=== PATIENT | female | born 1995 | race American Indian/Alaskan Native ===

== ENCOUNTER 2018-08-03 20:26 | Emergency (ER) | payer MEDICAID, OTHER ==
--- NOTE | 2018-08-03 20:43 | Event Note ---
ED Screening Note Date of service: 08/03/18 Time: 20:43 ED Screening Note: 23 y/o female with severe back pain. Denies any trauma. This initial assessment/diagnostic orders/clinical plan/treatment(s) is/are subject to change based on patients health status, clinical progression and re-assessment by fellow clinical providers in the ED. Further treatment and workup at subsequent clinical providers discretion. Patient/guardian urged not to elope from the ED as their condition may be serious if not clinically assessed and managed. Initial orders include:
[2018-08-03 21:53] LABS: Bacteria,Urine 1+ /HPF (Negative); Bilirubin,Urine NEG (Negative); Blood,Urine LG (Negative); Color,Urine Yellow (Yellow); Mucus,Urine FEW /HPF; Protein,Urine <15 mg/dL mg/dL (Negative); Urobilinogen,Urine < 2.0 mg/dL (<2.0)
[2018-08-03] MEDS ORDERED: TORADOL IM ONE (22:58)
--- NOTE | 2018-08-03 23:00 | Emergency Department Report ---
ED Back Pain/Injury HPI - General Chief Complaint: Back Pain/Injury Stated Complaint: SEVERE BACK PAIN Time Seen by Provider: 08/03/18 22:42 Source: patient, family Limitations: No Limitations - History of Present Illness Initial Comments: This is 23-year-old female here report that she is having back pain 10/10 3 days. Denies any injury. Reports pain is located to the left side of back and denies any problem with urination. Denies any injury. She says that she feels like she pulled a muscle. Pain is 10/10 achy. Complaint: back pain Onset/Timin -: days(s) Similar Symptoms Previously: Yes Place: home Radiation: none Severity: severe Severity scale (0 -10): 10 Quality: aching Consistency: constant Improves With: none Worsens With: none Context: unknown Associated Symptoms: denies: confusion, weakness, chest pain, numbness, difficulty walking, cough, difficulty urinating, diaphoresis, incontinence, fever/chills, constipation, headaches, abdominal pain, loss of appetite, malaise, nausea/vomiting, rash, seizure, shortness of breath, syncope Treatments Prior to Arrival: acetaminophen - Related Data Previous Rx's Medication Instructions Recorded Last Taken Type Cyclobenzaprine [Flexeril] 10 mg PO TID PRN #12 tablet 08/04/18 Unknown Rx Naproxen [Naprosyn] 500 mg PO Q12H PRN #10 tablet 08/04/18 Unknown Rx Sulfamethoxazole/Trimethoprim 1 each PO BID 7 Days #14 tablet 08/04/18 Unknown Rx [Bactrim DS TAB] Allergies Allergy/AdvReac Type Severity Reaction Status Date / Time No Known Allergies Allergy Unverified 08/13/15 17:35 ED Review of Systems ROS: Stated complaint: SEVERE BACK PAIN Other details as noted in HPI Constitutional: denies: chills, fever ENT: denies: throat pain, congestion Respiratory: denies: cough, shortness of breath, wheezing Cardiovascular: denies: chest pain, palpitations, edema, syncope Gastrointestinal: denies: abdominal pain, nausea, vomiting Genitourinary: denies: dysuria, frequency, hematuria Musculoskeletal: back pain. denies: joint swelling, arthralgia, myalgia Skin: denies: rash Neurological: denies: headache, numbness, paresthesias, confusion, abnormal gait, vertigo ED Past Medical Hx - Past Medical History Previous Medical History?: No Hx Hypertension: No Hx Diabetes: No Hx Deep Vein Thrombosis: No Hx Renal Disease: No Hx Sickle Cell Disease: No Hx Seizures: No Hx Asthma: No - Surgical History Past Surgical History?: No - Family History Family history: hypertension - Social History Smoking Status: Never Smoker Substance Use Type: None - Medications Home Medications: Home Medications Medication Instructions Recorded Confirmed Last Taken Type Cyclobenzaprine [Flexeril] 10 mg PO TID PRN #12 tablet 08/04/18 Unknown Rx Naproxen [Naprosyn] 500 mg PO Q12H PRN #10 tablet 08/04/18 Unknown Rx Sulfamethoxazole/Trimethoprim 1 each PO BID 7 Days #14 tablet 08/04/18 Unknown Rx [Bactrim DS TAB] ED Physical Exam - General Limitations: No Limitations General appearance: alert, in no apparent distress - Head Head exam: Present: atraumatic, normocephalic - Eye Eye exam: Present: normal appearance, PERRL, EOMI - ENT ENT exam: Present: normal exam, normal orophraynx, mucous membranes moist - Neck Neck exam: Present: normal inspection, full ROM. Absent: tenderness, lymphadenopathy - Respiratory Respiratory exam: Present: normal lung sounds bilaterally. Absent: respiratory distress, chest wall tenderness - Cardiovascular Cardiovascular Exam: Present: regular rate, normal rhythm, normal heart sounds - GI/Abdominal GI/Abdominal exam: Present: soft, normal bowel sounds. Absent: distended, tenderness, guarding, rebound, rigid, organomegaly, mass, bruit, pulsatile mass - Extremities Exam Extremities exam: Present: normal inspection, full ROM, normal capillary refill, other (No cce. + 2 pulses in all extremities, no neurovascular compromise). Absent: tenderness, pedal edema, joint swelling, calf tenderness - Back Exam Back exam: Present: normal inspection, full ROM, CVA tenderness (L), other (ambulates without any difficulties). Absent: tenderness, CVA tenderness (R), muscle spasm, paraspinal tenderness, vertebral tenderness, rash noted - Expanded Back Exam Expanded Back exam: Absent: saddle anesthesia Back exam: Negative Straight Leg Raising: Left, Right - Neurological Exam Neurological exam: Present: alert, oriented X3, normal gait - Psychiatric Psychiatric exam: Present: normal affect, normal mood - Skin Skin exam: Present: warm, dry, intact, normal color. Absent: rash ED Course Vital Signs 08/03/18 08/04/18 20:42 02:33 Temperature 98.4 F 98.0 F Pulse Rate 88 66 Respiratory 18 18 Rate Blood Pressure 92/54 Blood Pressure 101/44 [Right] O2 Sat by Pulse 99 99 Oximetry - Reevaluation(s) Reevaluation #1: 08/04/18 01:36 She received Toradol 60 mg IM for pain which decreased her pain down to 3/10. Still awaiting CT scan results. ED Medical Decision Making - Lab Data Lab Results 08/03/18 08/03/18 Range/Units 21:15 21:15 Urine Color Yellow (Yellow) Urine Turbidity Slightly-cloudy (Clear) Urine pH 6.0 (5.0-7.0) Ur Specific [place] 1.028 (1.003-1.030) Urine Protein <15 mg/dl (Negative) mg/dL Urine Glucose (UA) Neg (Negative) mg/dL Urine Ketones Neg (Negative) mg/dL Urine Blood Lg (Negative) Urine Nitrite Neg (Negative) Urine Bilirubin Neg (Negative) Urine Urobilinogen < 2.0 (<2.0) mg/dL Ur Leukocyte Esterase Sm (Negative) Urine WBC (Auto) 9.0 H (0.0-6.0) /HPF Urine RBC (Auto) 107.0 (0.0-6.0) /HPF U Epithel Cells (Auto) 9.0 (0-13.0) /HPF Urine Bacteria (Auto) 1+ (Negative) /HPF Urine Mucus Few /HPF Urine HCG, Qual Negative (Negative) Urine culture sent - Radiology Data Radiology results: report reviewed CT scan of abdomen and pelvis without contrast dictated by radiologist and reported to myself. Please see details below Findings [facility] [address] [place] [address] Cat Scan Report Signed Patient: DOREEN GA MR#: [id number] : 1995 Acct:[id number] Age/Sex: 23 / F ADM Date: 08/03/18 Loc: ED Attending Dr: Ordering Physician: JULIÁN OSBORNE Date of Service: 08/03/18 Procedure(s): CT abdomen pelvis wo con Accession Number(s): [id number] cc: JULIÁN OSBORNE PROCEDURE: CT abdomen and pelvis without contrast. TECHNIQUE: Computerized axial tomography of the abdomen and pelvis was performed without intravenous contrast. This study is performed without intravascular contrast material and its sensitivity for abdominal and pelvic pathology, including neoplasms, inflammation, abscess, free fluid, thrombosis, arterial dissection and infarction, is reduced compared with a contrast enhanced study. CT DOSE LENGTH PRODUCT: 1294.8 mGycm HISTORY: right flank pain and back pain with urinary tract COMPARISONS: None. FINDINGS: The lung bases are clear. There are no pleural effusions. The heart size is normal. There is an ovoid mass in the lower outer quadrant of the right breast. There is a small calcification at the margin of this mass. The mass measures 2.3 cm x 1.5 cm in cross-section. Routine mammographic and physical examination workup is recommended if this has not already been performed. The liver, pancreas and spleen are grossly normal. The gallbladder is contracted. There is no biliary dilatation. The adrenal glands are not enlarged. Both kidneys appear normal in size and configuration. The abdominal aorta has a normal caliber. There is no retrope ritoneal adenopathy. The unopacified gastrointestinal tract is unremarkable. A normal appendix is visible. The bladder, uterus and adnexal regions appear normal. The regional skeleton appears intact. There is a small umbilical hernia containing fat. IMPRESSION: Indeterminate solid mass in the right breast as discussed above. Otherwise no significant abnormality identified. This document is electronically signed by Smith Haro MD., August 04 2018 01:32:23 AM ET Transcribed By: MRM Dictated By: SMITH HARO MD Electronically Authenticated By: SMITH HARO MD Signed Date/Time: 08/04/18 0134 DD/ TD/TT: - Medical Decision Making 23 yo female here with lt lower back pain 3 days and reported pain to be 10 out of 10. She was given Toradol 60 mg IM which leaves her pain. Patient is currently on her menstrual cycle and she had urinalysis which showed urinary tract infection with large amount blood, small amount leukocyte Estrace positive white blood cell, red blood cell and bacteria. Large amount of blood due to menses. Patient is complaining of left flank pain so CT scan of abdomen and pelvis without contrast and and it shows FINDINGS: The lung bases are clear. There are no pleural effusions. The heart size is normal. There is an ovoid mass in the lower outer quadrant of the right breast. There is a small calcification at the margin of this mass. The mass measures 2.3 cm x 1.5 cm in cross-section. Routine mammographic and physical examination workup is recommended if this has not already been performed. The liver, pancreas and spleen are grossly normal. The gallbladder is contracted. There is no biliary dilatation. The adrenal glands are not enlarged. Both kidneys appear normal in size and configuration. The abdominal aorta has a normal caliber. There is no retroperitoneal adenopathy. The unopacified gastrointestinal tract is unremarkable. A normal appendix is visib le. The bladder, uterus and adnexal regions appear normal. The regional skeleton appears intact. There is a small umbilical hernia containing fat. IMPRESSION: Indeterminate solid mass in the right breast as discussed above. Otherwise no significant abnormality identified This is discussed the patient and she will need to have a mammogram to evaluate incidental findings for right breast mass. Patient with urinary tract infection and placed on Bactrim DS. Discharged home in stable condition in no acute distress and back pain is better - Differential Diagnosis kidney stones versus urethral stone, pyelonephritis, UTI, MSK pain Critical care attestation.: If time is entered above; I have spent that time in minutes in the direct care of this critically ill patient, excluding procedure time. ED Disposition Clinical Impression: Acute left flank pain, Acute cystitis with hematuria, Mass of right breast Disposition: DC-01 TO HOME OR SELFCARE Is pt being admited?: No Does the pt Need Aspirin: No Condition: Undetermined Instructions: Breast Self-exam (ED), Mammogram (ED), Urinary Tract Infection in Women (ED), Back Pain (ED), Breast Mass (ED) Additional Instructions: Please follow up with a primary care physician in 2-3 day and if he do not have a primary care physician follow-up at this outside Medical Center. Take medication as prescribed by please not drive or operate heavy machinery while taking Flexeril at this medication will cause drowsiness If his symptoms worsens, return to emergency room Your CT scan shows incidental finding for right breast mass and he will need to follow-up with your [employer] or primary care physician for referral for mammogram for further evaluation. Prescriptions: Sulfamethoxazole/Trimethoprim [Bactrim DS TAB] 1 each PO BID 7 Days #14 tablet Cyclobenzaprine [Flexeril] 10 mg PO TID PRN #12 tablet PRN Reason: Muscle Spasm Naproxen [Naprosyn] 500 mg PO Q12H PRN #10 tablet PRN Reason: PAIN Referrals: PRIMARY CAREMD [Primary Care Provider] - 08/06/18 JESSY GALAN MD [Staff Physician] - 08/06/18 [facility] [Outside] - 08/06/18 Forms: Work/School Release Form(ED)
[2018-08-04 00:27] LABS: HCG Qualitative,Urine Negative (Negative)
--- NOTE | 2018-08-04 01:34 | Cat Scan Report ---
PROCEDURE: CT abdomen and pelvis without contrast. TECHNIQUE: Computerized axial tomography of the abdomen and pelvis was performed without intravenous contrast. This study is performed without intravascular contrast material and its sensitivity for ab dominal and pelvic pathology, including neoplasms, inflammation, abscess, free fluid, thrombosis, art erial dissection and infarction, is reduced compared with a contrast enhanced study. CT DOSE LENGTH PRODUCT: 1294.8 mGycm HISTORY: right flank pain and back pain with urinary tract COMPARISONS: None. FINDINGS: The lung bases are clear. There are no pleural effusions. The heart size is normal. There is an ovoid mass in the lower outer quadrant of the right breast. There is a small calcification at the margin o f this mass. The mass measures 2.3 cm x 1.5 cm in cross-section. Routine mammographic and physical ex amination workup is recommended if this has not already been performed. The liver, pancreas and splee n are grossly normal. The gallbladder is contracted. There is no biliary dilatation. The adrenal glan ds are not enlarged. Both kidneys appear normal in size and configuration. The abdominal aorta has a normal caliber. There is no retroperitoneal adenopathy. The unopacified gastrointestinal tract is unr emarkable. A normal appendix is visible. The bladder, uterus and adnexal regions appear normal. The r egional skeleton appears intact. There is a small umbilical hernia containing fat. IMPRESSION: Indeterminate solid mass in the right breast as discussed above. Otherwise no significant abnormality identified. This document is electronically signed by Smith Bustamante MD., August 04 2018 01:32:23 AM ET
[2018-08-04 02:35] VITALS: BP 101/44
== END 2018-08-04 02:33 | disposition home or self-care (01) ==
LOC: ED 20:26
DX: N30.01 Acute cystitis with hematuria (principal); N63.10 Unspecified lump in the right breast, unspecified quadrant
CPT/HCPCS: 74176; 81001; 81025; 87086; 96372; 99284; J1885